=== PATIENT | female | born 1995 | race Caucasian/White ===

== ENCOUNTER 2022-02-21 14:35 | Emergency (ER) | payer MEDICAID ==
[~2022-02-21] VITALS: Ht 149.9 cm; Wt 44.5 kg
[2022-02-21 14:35] VITALS: BP_SYST 105
[2022-02-21 16:19] LABS: BILIRUBIN,URINE NEGATIVE (NEGATIVE); CLARITY/URINE CLEAR (CLEAR); COLOR,URINE YELLOW (YELLOW); GLUCOSE,URINE NEGATIVE (NEGATIVE); KETONES,URINE NEGATIVE (NEGATIVE); LEUKOCYTE ESTERASE ,URINE TRACE (NEGATIVE); NITRITE, URINE NEGATIVE (NEGATIVE); PROTEIN URINE NEGATIVE (NEGATIVE); UROBILINOGEN,URINE 0.2 (0.2-1.0)
[2022-02-21 16:20] LABS: BLOOD, URINE TRACE (NEGATIVE)
[2022-02-21 16:41] LABS: BACTERIA,URINE None Seen /HPF (None Seen); RBC,URINE 0-3 /HPF (0-3); WBC,URINE 0-3 /HPF (0-3)
[2022-02-21 16:42] LABS: MUCUS,URINE None Seen /LPF (None Seen)
[2022-02-21] MEDS ORDERED: NITR-85 PO (17:10)
== END 2022-02-21 17:10 | disposition home or self-care (01) ==
LOC: SED 14:35
DX: N39.0 Urinary tract infection, site not specified (principal); R30.0 Dysuria; R35.0 Frequency of micturition; Z88.1 Allergy status to other antibiotic agents; Z79.899 Other long term (current) drug therapy
CPT/HCPCS: 81000; 87086; 99283